=== PATIENT | female | born 1990 | race Caucasian/White ===

== ENCOUNTER 2021-04-06 16:19 | Emergency (ER) | payer BC, SELFPAY ==
--- NOTE | ~2021-04-06 | XR_ITS ---
XR shoulder LT min 2V 04/06/2021 16:49 Indication: Left lateral shoulder pain after fall Procedure: 5 views left shoulder Comparison: No prior studies for comparison. Findings: There is a nondisplaced fracture of the greater tuberosity. Glenohumeral joint and anatomic alignment. No other fracture. No significant soft tissue abnormality. Impression: 1: Nondisplaced fracture of the left humeral greater tuberosity. Reviewed, dictated and finalized at location A. Impression: 1: Nondisplaced fracture of the left humeral greater tuberosity.
[2021-04-06 16:28] VITALS: BP 146/95; PULSE 83; RESP 20; TEMP 36.9; O2SAT 100
--- NOTE | 2021-04-06 16:30 | ED.UPPEXIN ---
HPI - Extremity Injury (Upper) General Chief Complaint: Extremity Injury, Upper Stated Complaint: left shoulder injury Time Seen by Provider: 04/06/21 16:30 Source: patient Mode of arrival: ambulatory Limitations: no limitations History of Present Illness HPI narrative: Jill Barr is a 30 yo female who fell on L shoulder last night and cannot move it. Patient states that she fell forward after tripping; she has bruises on her lower legs but she says she has been camping- Related Data Home Medications Medication Instructions Recorded Confirmed lamotrigine 150 mg PO BID 04/06/21 04/06/21 medroxyprogesterone 150 mg IM [id number] 04/06/21 04/06/21 Allergies Allergy/AdvReac Type Severity Reaction Status Date / Time codeine Allergy Unknown itching Unverified 01/11/15 16:06 Review of Systems Review of Systems: Narrative: CONSTITUTIONAL: Denies fever, chills, sweats. EYES: Denies visual changes, redness, discharge. ENT: Denies rhinorrhea, congestion, sore throat, otalgia. CARDIOVASCULAR: Denies chest pain, palpitations, edema. RESPIRATORY: Denies dyspnea, wheezing, cough GASTROINTESTINAL: Denies abdominal pain, nausea, vomiting, diarrhea. GENITOURINARY: Denies dysuria, hematuria, abnormal discharge SKIN: Denies rash or itching. NEUROLOGIC: Denies numbness, or focal weakness. PSYCHIATRIC: Denies anxiety or depression. Left shoulder pain states she cannot move her shoulder rates pain as 10/10 PMFSH Past Medical History Medical History Seizure Social History Social History (Updated 04/06/21 @ 16:42 by Malinda Palacios CNP) Smoking packs per day: 1 Smoking cigarettes per day: 20.0 Smoking status: Current every day smoker Tobacco type: cigarettes Alcohol intake: current Gender identity (if verbalized by the patient): Female Exam Narrative: Exam Narrative: GENERAL: This is a well-nourished, well-developed patient, in mild distress. HEAD: normocephalic, atraumatic. EYES: . Sclera clear/white. Vision is grossly intact. EARS: External ears normal, Hearing grossly intact. NOSE: External nose normal without nasal discharge, nares without redness, no rhinorrhea. THROAT: Mucous membranes moist, NECK: Neck supple, non-tender CARDIOVASCULAR: Regular rate and rhythm without murmurs, gallops, or rubs. RESPIRATORY: Clear to auscultation. Breath sounds equal bilaterally. No wheezes, rales, or rhonchi. GASTROINTESTINAL: Abdomen soft, SKIN: warm, intact with ecchymosis to anterior bilateral legs NEURO: awake, alert, and oriented to person, place and time. There were no obvious focal neurologic abnormalities. Steady gait EXTREMITIES: Normal range of motion. Shaking holding arm rigid, pointing to upper humeral head, moans when tries to move arm BACK: Nontender without deformity Course Course Emergency Course: Patient fell yesterday and hurt left arm/shoulder-vague about circumstances X-ray left shoulder shows Nondisplaced fracture of the left humeral greater tuberosity. Placed in shoulder shoulder immobilizer Started on hydrocodone Referred to Dr. Schmitt, orthopedist car salesperson Directions given to patient Vital Signs Vital signs: Vital Signs Temperature 98.5 F 04/06/21 16:28 Pulse Rate 83 04/06/21 16:28 Respiratory Rate 20 04/06/21 16:28 Blood Pressure 146/95 H 04/06/21 16:28 Pulse Oximetry 100 04/06/21 16:28 Temperature 98.5 F 04/06/21 16:28 Pulse Rate 83 04/06/21 16:28 Respiratory Rate 20 04/06/21 16:28 Blood Pressure 146/95 H 04/06/21 16:28 Pulse Oximetry 100 04/06/21 16:28 Discharge Plan Discharge Clinical Impression: Fracture of humeral head, left, closed Qualifiers: Encounter type: initial encounter Qualified Code(s): S42.292A - Other displaced fracture of upper end of left humerus, initial encounter for closed fracture Patient Disposition: Home, Self-Care Condition: Stable Instructions: Proximal [place]
== END 2021-04-06 17:26 | disposition home or self-care (01) ==
PROVIDERS: Emergency Provider Nurse Practitioner
DX: S42.255A Nondisplaced fracture of greater tuberosity of left humerus, initial encounter for closed fracture (principal); W01.0XXA Fall on same level from slipping, tripping and stumbling without subsequent striking against object, initial encounter; F17.210 Nicotine dependence, cigarettes, uncomplicated; G40.909 Epilepsy, unspecified, not intractable, without status epilepticus
CPT/HCPCS: 73030; 99204; G0463

== ENCOUNTER 2024-03-12 13:54 | Emergency (ER) | payer OTHER, SELFPAY ==
[2024-03-12 14:00] VITALS: BP 127/77; PULSE 70; RESP 18; TEMP 36.5; O2SAT 100
--- NOTE | 2024-03-12 14:39 | ED.URI ---
HPI - URI/Sore Throat General Chief Complaint: Upper Respiratory Infection Stated Complaint: ears/head/nose/aches Time Seen by Provider: 03/12/24 14:39 Source: patient and RN notes reviewed Mode of arrival: ambulatory Limitations: no limitations History of Present Illness HPI Narrative: 33-year-old female presented for complaint of sore throat, headache, body aches, sinus pressure/congestion, cough, fever/chills. Onset yesterday. Denies sob, wheezing, n/v/d. Not taking anything for symptoms. MD elicited complaint: cough Related Data Home Medications Medication Instructions Recorded Confirmed lamotrigine 150 mg tablet 150 mg PO BID 04/06/21 06/23/21 Allergies Allergy/AdvReac Type Severity Reaction Status Date / Time codeine Allergy Unknown itching Unverified 01/11/15 16:06 Review of Systems Review of Systems: CONSTITUTIONAL: Endorses malaise, denies chills, sweats, fever EYES: Denies visual changes, redness, or discharge ENT: Reports rhinorrhea, congestion, otalgia, sore throat CARDIOVASCULAR: Denies chest pain, palpitations, edema RESPIRATORY: Reports cough, post nasal drainage. Denies dyspnea GASTROINTESTINAL: Denies abdominal pain, nausea, vomiting, diarrhea SKIN: Denies rash or itching MUSCULOSKELETAL: Endorses myalgia PMFSH Past Medical History Medical History Seizure Social History Social History Smoking packs per day: 1 Smoking cigarettes per day: 20.0 Smoking status: Current every day smoker Tobacco type: cigarettes and e-cigarettes/vaping Alcohol intake: current Living arrangements: with roommate(s) Occupation/Education: occupation Additional occupation/education comments: warehouse Gender identity (if verbalized by the patient): Female Exam Narrative: GENERAL: mildly ll-appearing, nontoxic no acute distress. EYES: PERRLA, conjunctivae clear ENT: Mucous membranes moist. Nasal congestion. TMs erythematous, bulging and intact; canal not erythematous, no drainage bilaterally; no tragal tenderness. Oropharynx erythematous without lesions or exudate, no drooling, no hoarseness, no trismus, uvula midline. No tripod positioning, muffled voice, soft palate or pharyngeal wall bulging NECK: Supple. No lymphadenopathy CHEST: Clear to auscultation, breath sounds equal. No wheezing, rhonchi, rales, or stridor. No respiratory distress, speaks in full sentences. HEART: Regular rate and rhythm. No murmur heard. SKIN: Warm, dry, no rash. NEURO: Alert and oriented x3. PSYCH: Normal mood and affect Course Course Emergency Course: Patient is aware of diagnosis, understands and agrees to treatment plan. Anticipatory guidance given. Patient agrees to follow-up as directed and is aware of reasons to seek care at the emergency department. Portions of this record may have been created with voice recognition software Level of Care: Express Care Visit Vital Signs Vital signs: Vital Signs Temperature 97.7 F 03/12/24 14:00 Pulse Rate 70 03/12/24 14:00 Respiratory Rate 18 03/12/24 14:00 Blood Pressure 127/77 03/12/24 14:00 Pulse Oximetry 100 03/12/24 14:00 Oxygen Delivery Room Air 03/12/24 14:00 Temperature 97.7 F 03/12/24 14:00 Pulse Rate 70 03/12/24 14:00 Respiratory Rate 18 03/12/24 14:00 Blood Pressure 127/77 03/12/24 14:00 Pulse Oximetry 100 03/12/24 14:00 Oxygen Delivery Room Air 03/12/24 14:00 reviewed MDM - URI/Sore Throat MDM Narrative Medical decision making narrative: negative strep. Patient declined viral testing. Discussed physical exam findings. Advised supportive measures and signs/symptoms to go to the ER. Pt is appropriate for outpt treatment and f/u. Differential Diagnosis Differential diagnosis: Likely upper respiratory infection, sinusitis and viral infection Discharge Plan Discharge Clinical Impr
== END 2024-03-12 14:54 | disposition home or self-care (01) ==
PROVIDERS: Emergency Provider Nurse Practitioner Family
DX: H66.93 Otitis media, unspecified, bilateral (principal); J06.9 Acute upper respiratory infection, unspecified; F17.210 Nicotine dependence, cigarettes, uncomplicated; F17.290 Nicotine dependence, other tobacco product, uncomplicated
CPT/HCPCS: 87081; 87880; 99213; G0463